=== PATIENT | female | born 1950 | race Caucasian/White ===

== ENCOUNTER 2018-10-06 08:32 | Day surgery (SDC) | payer OTHER ==
[2018-10-06] MEDS ORDERED: LIPITOR20 MG (21:21)
[2018-10-06] MEDS ORDERED: HYDROCHLOROTHIA25 MG (21:21)
== END 2018-10-06 12:45 | disposition home or self-care (01) ==
LOC: AMB-ENDOS 08:32
DX: D12.2 Benign neoplasm of ascending colon (principal)

== ENCOUNTER 2018-10-06 21:05 | Emergency (ER) | payer OTHER ==
[~2018-10-06] VITALS: Ht 160 cm; Wt 74.8 kg
[2018-10-06] MEDS ORDERED: LIPITOR20 MG (21:21)
[2018-10-06] MEDS ORDERED: HYDROCHLOROTHIA25 MG (21:21)
== END 2018-10-08 12:33 | disposition home or self-care (01) ==
LOC: ER 21:05 → SEC-K 10-07 07:24 → SURG 10-07 07:24 → ER 10-07 07:24 → SEC-K 10-08 13:03 → SURG 10-08 13:03
DX: K91.841 Postprocedural hemorrhage of a digestive system organ or structure following other procedure (principal); K62.5 Hemorrhage of anus and rectum; D12.2 Benign neoplasm of ascending colon; K57.30 Diverticulosis of large intestine without perforation or abscess without bleeding; K44.9 Diaphragmatic hernia without obstruction or gangrene; K62.89 Other specified diseases of anus and rectum; Z88.6 Allergy status to analgesic agent